=== PATIENT | male | born 1960 | race African-American/Black ===

== ENCOUNTER 2024-12-15 20:56 | Emergency (ER) | payer BC, MEDICAID ==
[~2024-12-15] VITALS: Ht 177.8 cm; Wt 98.0 kg
[2024-12-15 21:15] VITALS: O2SAT 98
[2024-12-15] MEDS: LIDOCAINE HCL 1% 20ML VIAL INFIL ONE (21:45)
[2024-12-15] MEDS ORDERED: BO1 TP (23:17)
[2024-12-16 00:46] VITALS: BP 136/85; PULSE 76; RESP 18; TEMP 37; O2SAT 99
[2024-12-16] MEDS: TETANUS, DIPHTHERIA, PERTUSSIS VAC/PF 0.5ML (>10YR OLD) IM ONE (00:47)
== END 2024-12-16 01:00 | disposition home or self-care (01) ==
LOC: ER 20:56
DX: S01.81XA Laceration without foreign body of other part of head, initial encounter (principal); S80.211A Abrasion, right knee, initial encounter; I10 Essential (primary) hypertension; Y08.89XA Assault by other specified means, initial encounter; Y93.9 Activity, unspecified; Y92.89 Other specified places as the place of occurrence of the external cause; Y99.8 Other external cause status
CPT/HCPCS: 99285; 70450; 73562; 70486; 72125; 90715; 12013; 90471; J2003